=== PATIENT | female | born 2000 | race African-American/Black ===

== ENCOUNTER 2021-01-25 15:25 | Emergency (ER) | payer MEDICARE, MEDICAID, SELFPAY ==
[2021-01-25] VITALS (8 sets, daily range): BP systolic 90–122; BP diastolic 62–83; PULSE 72–85; RESP 14–22; TEMP 35–35.9; O2SAT 92–97; BMI 32.0
--- NOTE | 2021-01-25 16:15 | EKG12_ITS ---
Test Reason : ILLNESS Blood Pressure : / mmHG Vent. Rate : 074 BPM Atrial Rate : 074 BPM P-R Int : 196 ms QRS Dur : 086 ms QT Int : 388 ms P-R-T Axes : 040 003 013 degrees QTc Int : 430 ms Normal sinus rhythm Normal ECG Confirmed by DELGADO SIMMONS, DAYNE ([id number]), map editor WOLFGANG SANTOYO ([id number]) on 01/29/2021 10:30:29 AM Referred By: AUTUMN Confirmed By:DAYNE NATARAJAN MD
--- NOTE | 2021-01-25 16:15 | RAD_ITS ---
STUDY: X-RAY CHEST REASON FOR EXAM: Female, 20 years old. Dyspnea TECHNIQUE: Single AP portable view of the chest. COMPARISON: None. FINDINGS: EKG leads overlie the chest. Satisfactory appearance of a tracheostomy tube. The lungs are expanded with superimposed airspace opacifications in both lung kerns without effusions. This is suggestive of Covid pneumonia, but can also be seen with pulmonary vascular congestion or pneumonitis. There is no demonstrated pleural abnormality. Normal size heart. Normal mediastinum and shelly. Normal visualized pulmonary arteries. Normal visualized aortic arch and descending thoracic aorta. There is a rotatory scoliosis. Normal visualized ribs, clavicles, and shoulders. There is no demonstrated abnormality of the visualized soft tissue structures of the upper abdomen. RAD/Chest 1 View (Portable) IMPRESSION: Diffuse airspace opacifications in both lung kerns without effusions. Follow-up recommended to ensure resolution Electronically Signed: Rene Pacheco MD at 17:18 EDT , Service support ,
--- NOTE | 2021-01-25 16:16 | ED.VIS.DYS ---
HPI History of Present Illness Chief Complaint: Shortness of Breath Narrative Narrative: Patient has a history of quadriplegia secondary to cerebral palsy as well as a tracheostomy, she was recently released from [facility] in [place], presents with decreased responsiveness, blood in her tracheostomy and with the caregiver thinks may be shortness of breath. Patient is nonverbal at baseline but she usually laughs or smiles and makes some purposeful movements, she has been lethargic all day. No reported fever, she has history of seizures but no known seizure today. She has decreased wet diapers. [facility] Medical History (Updated 01/25/21 @ 18:[address] 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 Home Medications Lactobacillus acidophilus [Acidophilus] 500 mmu cells FEEDING TUBE DAILY 01/25/21 [History Last Taken Unknown] acetaminophen [Tylenol Extra Strength] 500 mg Q4H PRN 01/25/21 [History Last Taken Unknown] albuterol sulfate 2.5 mg INHALATION BID 01/25/21 [History Last Taken Unknown] albuterol sulfate 2.5 mg INHALATION Q8H PRN 01/25/21 [History Last Taken Unknown] baclofen 10 mg FEEDING TUBE DAILY 01/25/21 [History Last Taken Unknown] cetirizine [Zyrtec] 80 mg FEEDING TUBE DAILY 01/25/21 [History Last Taken Unknown] chlorhexidine gluconate 15 ml BUCCAL DAILY 01/25/21 [History Last Taken Unknown] clobazam [Onfi] 22.5 mg FEEDING TUBE BID 01/25/21 [History Last Taken Unknown] diazepam 4 mg FEEDING TUBE TID 01/25/21 [History Last Taken Unknown] fluticasone propionate [Flonase] 1 spray INTRANASAL DAILY 01/25/21 [History Last Taken Unknown] fluticasone propionate [Flovent HFA] 2 puff INHALATION BID 01/25/21 [History Last Taken Unknown] folic acid 1 mg FEEDING TUBE DAILY 01/25/21 [History Last Taken Unknown] gluc [id number] [Biotene] 1 ea MUCOUS MEMBRANE BID 01/25/21 [History Last Taken Unknown] glycopyrrolate [Robinul] 2 mg FEEDING TUBE TID 01/25/21 [History Last Taken Unknown] ibuprofen [Motrin] 300 mg PO Q6H PRN 01/25/21 [History Last Taken Unknown] lamotrigine [Lamictal] 300 mg FEEDING TUBE BID 01/25/21 [History Last Taken Unknown] medroxyprogesterone 150 mg IM X1 01/25/21 [History Last Taken Unknown] melatonin 5 mg PO QHS 01/25/21 [History Last Taken Unknown] metoclopramide HCl [Reglan] 1.3 mg FEEDING TUBE BID 01/25/21 [History Last Taken Unknown] midazolam 5 mg PRN PRN 01/25/21 [History Last Taken Unknown] multivitamin 1 ea DAILY 01/25/21 [History Last Taken Unknown] mupirocin calcium [Bactroban] 1 applic TOPICAL TID PRN 01/25/21 [History Last Taken Unknown] nutritional supplements [Nutren 1.0] 125 ml FEEDING TUBE DAILY 01/25/21 [History Last Taken Unknown] omeprazole 20 mg FEEDING TUBE DAILY 01/25/21 [History Last Taken Unknown] polyethylene glycol 3350 [Miralax] 17 g FEEDING TUBE DAILY 01/25/21 [History Last Taken Unknown] Allergy/AdvReac Type Severity Reaction Status Date / Time nystatin AdvReac Other Verified 01/25/21 15:30 Social History Smoking Status: Never smoker ROS ROS ED Review of Systems ROS Unobtainable: due to encephalopathy, due to mental condition and due to mental status EXAM Physical Exam Narrative Exam Narrative: Physical exam General: Patient has obvious cerebral palsy features, she is quadriplegic, she is somnolent and not very easily arousable. Head: No signs of trauma. Eyes: Conjunctiva not pale. Pupils are about 2 mm and reactive bilaterally ENT: Dry mucous membranes Neck: Supple, tracheostomy site is intact no signs of infection. I cannot appreciate any discharge from the tracheostomy. Cardiovascular: Regular rate, Regular rhythm. No obvious murmur Respiratory: Coarse bilateral breath sounds worse on the right. She is tachypneic. Abdomen: Soft, she does not grimace when I palpate the abdomen. Back: Nontender, Normal Inspection. Extremities: No signs of trauma. No edema. Contractures that are chronic are seen. Skin: Normal color, No rash Neurological: She is minimally responsive just pain, contractures, no obvious movements of the lower extremities, some movements of the upper extremities. GCS is E:1, V2, M4 Const Vital Signs: 01/25/21 15:26 01/25/21 16:19 01/25/21 16:20 Temperature 96.6 F L Temperature Source Temporal Pulse Rate 85 78 Respiratory Rate 22 H 17 Respiratory Effort Normal Non-Labored Respiratory Depth Normal Respiratory Pattern Normal Blood Pressure 102/83 H Blood Pressure Mean 89 Pulse Ox 92 94 Oxygen Delivery Method Room Air Room Air Room Air 01/25/21 17:10 01/25/21 17:43 Temperature 95 F L Temperature Source Temporal Pulse Rate 78 72 Respiratory Rate 15 14 Respiratory Effort Respiratory Depth Respiratory Pattern Blood Pressure 97/71 90/64 Blood Pressure Mean 79 72 Pulse Ox 93 94 Oxygen Delivery Method Room Air Room Air MDM MDM MDM Narrative Medical decision making narrative: Patient is found to have bilateral pneumonia, antibiotics were started her Covid is negative. Antibiotics started. Patient will be transferred to [facility]. Lab Data Labs: Laboratory Results - last 24 hr 01/25/21 01/25/21 01/25/21 16:30 16:44 16:44 WBC 10.5 RBC 3.60 L Hgb 12.6 Hct 37.9 MCV 105.3 H MCH 35.0 H MCHC 33.2 RDW Std Deviation 64.7 H RDW Coeff of [place] 16.8 H Plt Count 162 MPV 12.9 H Immature Gran % (Auto) 0.600 Neut % (Auto) 80.8 H Lymph % (Auto) 5.7 L Avery % (Auto) 12.1 H Eos % (Auto) 0.6 Baso % (Auto) 0.2 Absolute Neuts (auto) 8.5 H Absolute Lymphs (auto) 0.60 L Nucleated RBC % 0.2 Differential Comment SCANNED PT 13.3 INR 1.1 APTT 46.7 H Sodium Potassium Chloride Carbon Dioxide Anion Gap BUN Creatinine Estim Creat Clear Calc Est GFR (MDRD) Af Amer Est GFR (MDRD) Non-Af BUN/Creatinine Ratio Glucose Lactic Acid Calcium Total Bilirubin AST ALT Alkaline Phosphatase Total Protein Albumin Globulin Albumin/Globulin Ratio Urine Color Yellow Urine Clarity Cloudy Urine pH 7.0 Ur Specific [place] 1.010 Urine Protein Negative Urine Glucose (UA) Normal Urine Ketones Negative Urine Occult Blood Negative Urine Nitrite Negative Urine Bilirubin Negative Urine Urobilinogen Normal Ur Leukocyte Esterase Negative Urine RBC 0 SEEN Urine WBC 0 SEEN Ur Squamous Epith Cells 0-5 SEEN Amorphous Sediment 3+ PHOS Urine Bacteria 0 SEEN Urine Mucus 0 SEEN 01/25/21 01/25/21 16:44 16:44 WBC RBC Hgb Hct MCV MCH MCHC RDW Std Deviation RDW Coeff of [place] Plt Count MPV Immature Gran % (Auto) Neut % (Auto) Lymph % (Auto) A[place] % (Auto) Eos % (Auto) Baso % (Auto) Absolute Neuts (auto) Absolute Lymphs (auto) Nucleated RBC % Differential Comment PT INR APTT Sodium 139 Potassium 4.6 Chloride 108 H Carbon Dioxide 26.0 Anion Gap 5 BUN 9 Creatinine 0.38 L Estim Creat Clear Calc 176.08 Est GFR (MDRD) Af Amer 272 Est GFR (MDRD) Non-Af 225 BUN/Creatinine Ratio 23.6 H Glucose 68 L Lactic Acid 0.6 Calcium 9.7 Total Bilirubin 0.30 AST 78 H ALT 113 H Alkaline Phosphatase 296 H Total Protein 8.5 H Albumin 3.1 L Globulin 5.4 H Albumin/Globulin Ratio 0.6 L Urine Color Urine Clarity Urine pH Ur Specific [place] Urine Protein Urine Glucose (UA) Urine Ketones Urine Occult Blood Urine Nitrite Urine Bilirubin Urine Urobilinogen Ur Leukocyte Esterase Urine RBC Urine WBC Ur Squamous Epith Cells Amorphous Sediment Urine Bacteria Urine Mucus Radiography Diagnostic Testing: Radiology Impression Chest X-Ray 01/25/21 16:15 IMPRESSION: Diffuse airspace opacifications in both lung kerns without effusions. Follow-up recommended to ensure resolution Electronically Signed: Rene Pacheco MD at 17:18 EDT , Service support , Critical Care Time Critical care time (excluding procedures): - (Critical care time is 32 minutes. Patient has multiple medical problems, she has a decreased GCS she has bilateral pneumonia with respiratory distress. I spent time documenting, time at the bedside, time discussing with bruise trimmer as well as consultants and time transferring.) Discharge Plan Triage Chief Complaint: Shortness of Breath ED Provider: Burak Murillo Dx/Rx/DC Orders Clinical Impression: Bilateral pneumonia Prescriptions: No Action glycopyrrolate [Robinul] 1 mg Tablet 2 mg feeding tube TID RF: 0 albuterol sulfate 2.5 mg /3 mL (0.083 %) Solution For Nebulization 2.5 mg INHALATION BID RF: 0 metoclopramide HCl [Reglan] 5 mg/5 mL Solution 1.3 mg feeding tube BID RF: 0 baclofen 20 mg Tablet 10 mg feeding tube DAILY RF: 0 diazepam 2 mg Tablet 4 mg feeding tube TID RF: 0 omeprazole 20 mg capsule,delayed release(DR/EC) 20 mg feeding tube DAILY RF: 0 folic acid 1 mg Tablet 1 mg feeding tube DAILY RF: 0 polyethylene glycol 3350 [Miralax] 17 gram/dose Powder 17 g feeding tube DAILY RF: 0 fluticasone propionate [Flonase] 50 mcg/actuation [place],Suspension 1 spray INTRANASAL DAILY RF: 0 lamotrigine [Lamictal] 100 mg Tablet 300 mg feeding tube BID RF: 0 multivitamin Powder 1 ea DAILY RF: 0 cetirizine [Zyrtec] 1 mg/mL Solution 80 mg feeding tube DAILY RF: 0 melatonin 5 mg Tablet 5 mg PO QHS RF: 0 clobazam [Onfi] 2.5 mg/mL Suspension 22.5 mg feeding tube BID RF: 0 albuterol sulfate 2.5 mg /3 mL (0.083 %) solution for nebulization 2.5 mg inhalation Q8H PRN (Reason: Shortness Of Breath Or Wheezing) RF: 0 Nutren 1.0 Liquid 125 ml feeding tube DAILY RF: 0 Motrin 300 mg Tablet 300 mg PO Q6H PRN (Reason: Fever Or Pain) RF: 0 mupirocin calcium [Bactroban] 2 % Cream 1 applic TOPICAL TID PRN (Reason: Skin Irritation) RF: 0 medroxyprogesterone 150 mg/mL Suspension 150 mg IM X1 RF: 0 Flovent HFA 110 mcg/actuation Hfa Aerosol Inhaler 2 puff INHALATION BID RF: 0 Biotene Mouthwash 1 ea MUCOUS MEMBRANE BID RF: 0 Lactobacillus acidophilus [Acidophilus] 500 million cell Tablet 500 mmu cells feeding tube DAILY RF: 0 chlorhexidine gluconate 0.12 % Mouthwash 15 ml BUCCAL DAILY RF: 0 midazolam 10 mg/5 mL Syringe 5 mg PRN PRN (Reason: Seizure Activity) RF: 0 Tylenol Extra Strength 500 mg Powder In Packet 500 mg Q4H PRN (Reason: Fever Or Pain) RF: 0 Primary Care Provider: Care Physician,No Primary Referrals: Care Physician,No Primary [Primary Care Provider] - Disposition Disposition: Transfer to Another Type [facility]
[2021-01-25 16:38] LABS: Bacteria 0 SEEN /hpf (None Seen); Mucous, Urine 0 SEEN /hpf (<or=2+); Red Blood Cells-Urine 0 SEEN /hpf (0-5); White Blood Cells 0 SEEN /hpf (0-5)
[2021-01-25 16:42] LABS: Color, Urine Yellow (Yellow); Glucose, Dipstick Normal (Normal); Ketone-Dipstick Negative (Negative); Leukocyte Esterase-Dipstick Negative /ul (Negative); Nitrite-Dipstick Negative (Negative); Occult Blood-Urine Negative /ul (Negative); Protein-Dipstick Negative (Negative); Urine Bilirubin Dipstick Negative (Negative); Urine Clarity Cloudy (Clear); Urine Urobilinogen Normal (Normal)
[2021-01-25 17:00] LABS: Amorphous Sediment 3+ PHOS; Squamous Epithelial Cells - UA 0-5 SEEN /hpf (5-10)
[2021-01-25 17:03] LABS: Absolute Neutrophil Count 8.5 X10^3/uL (2.0-7.7); Basophil# 0.02 X10^3/uL; Basophil% 0.2 % (0-1); Eosinophil# 0.06 X10^3/uL; Eosinophils% 0.6 % (0-5); Hematocrit 37.9 % (37-47); Hemoglobin 12.6 g/dL (12.0-15.0); Lymphocyte % 5.7 % (19-41); Mean Corp Hgb Conc 33.2 g/dL (32-36); Mean Corpuscular Volume 105.3 fL (81-99); Mean Platelet Vol. 12.9 fl (6.2-12.0); Monocyte# 1.27 X10^3/uL; Monocyte% 12.1 % (0-10); NRBC Flagged by Analyzer 0.2 % (0-5); Neutrophil # 8.49 X10^3/uL (2.7-7.7); Neutrophil % 80.8 % (47-70); POSITIVE DIFFERENTIAL YES; Platelet Count 162 K/mm3 (150-450); RBC Distribution Width CV 16.8 % (11.6-14.6); RBC Distribution Width SD 64.7 fl (35.1-43.9); White Blood Count 10.5 K/mm3 (4.4-11.0)
[2021-01-25] MEDS: 0.9% Normal Saline 1,000 ML 1500 ML IV (17:06)
[2021-01-25 17:09] LABS: Differential Indicated SCAN CRITERIA MET
[2021-01-25 17:16] LABS: ALB/GLOB Ratio 0.6 RATIO (0.9-2.4); AST(SGOT) 78 U/L (15-37); Alanine Aminotransfer ALT/SGPT 113 U/L (13-56); Albumin, Serum 3.1 g/dL (3.2-5.0); Alkaline Phosphatase 296 U/L (45-117); Anion Gap 5 (5-15); BUN 9 mg/dL (7-18); BUN/Creat Ratio 23.6 RATIO (10-20); Calcium,Total 9.7 mg/dL (8.5-10.1); Chloride 108 mmol/L (98-107); Creatinine, Serum 0.38 mg/dL (0.55-1.02); EST Glomerular Filtration Rate 225 mL/min (>60); Est Glom Filt Rate - Afr Amer 272 mL/min (>60); Estimated Creatinine Clearance 176.08 ml/min; Globulin 5.4 g/dL (2.2-4.2); Glucose 68 mg/dL (74-106); Potassium 4.6 mmol/L (3.5-5.1); Protein, Total 8.5 g/dL (6.4-8.2); Sodium Level 139 mmol/L (136-145)
[2021-01-25 17:20] LABS: International Normalized Ratio 1.1; Prothrombin Time (Protime)PT. 13.3 SECONDS (11.7-14.9)
[2021-01-25 17:21] LABS: Partial Thromboplast Time 46.7 Seconds (24.1-36.2)
[2021-01-25 17:30] LABS: Lactic Acid 0.6 mmol/L (0.4-1.9)
[2021-01-25 17:41] LABS: Differential Comment SCANNED
--- NOTE | 2021-01-25 18:29 | ED.RN ---
this RN was called to room by caregiver. she stated that pt had 3 mini seizures back to back. upon entering pt was resting in bed and vitals were stable without any seizure activity noted. this RN updated ED physician and he stated he did not want to medicate at this time, just wanted to keep and eye on pt.
[2021-01-25] MEDS: Ceftriaxone 1 GM/50 ML BAG IV (18:38)
== END 2021-01-25 20:43 | disposition other institution (70) ==
PROVIDERS: Emergency Provider Emergency Medicine
DX: J18.9 Pneumonia, unspecified organism (principal); G80.1 Spastic diplegic cerebral palsy; Z93.0 Tracheostomy status; Z79.899 Other long term (current) drug therapy
CPT/HCPCS: 36415; 71045; 80053; 81001; 83605; 85025; 85610; 85730; 87040; 87086; 87426; 93005; 96361; 96365; 96367; 99285; J7030; P9612; A4216